=== PATIENT | female | born 1985 | race African-American/Black ===

== ENCOUNTER 2017-07-06 10:10 | Emergency (ER) | payer SELFPAY ==
[2017-07-06 10:15] VITALS: BP 101/63; BMI 19.1
--- NOTE | 2017-07-06 10:35 | DR.CP ---
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 Pain is not aggravated by motion. Chief Complaint:: PATIENT STATED THAT SHE IS HAVING CHEST PAIN ON THE LEFT SIDE. SHE STATED THAT SHE WOKE UP WITH THEM. SHE STATED THAT IT IS JUST THERE ONLY WHEN SHE TRIES TO GET UP. - Source History Provided: Patient - Mode of Arrival Mode of Arrival: Ambulatory - Timing Onset of Chief Complaint: 07/06/17 PMH - PMH Past Medical History: No Past Surgical History: Yes Surgical History: MOTOR DRIVER Surgery Past Surgical History Comment: HERNIA - Family History History of Family Medical Conditions: Yes Family Medical History: Diabetes Mellitus, Cancer, Hypertension - Social History Does patient currently use any type of tobacco product: Yes Have you used tobacco products in the last 12 months: Yes Type of Tobacco Use: Cigarettes Does any household member use tobacco: No Alcohol Use: None Do you use any recreational Drugs:: No Lives With: Family Lives Where: Home - infectious screening In the last 2 months have you had wt loss of >10#?: NO Have you had fever, night sweats or hemotysis?: No Have you traveled outside the country in the last 6 months?: No Isolation: Standard ROS - Review of Systems Eyes: No Symptoms Reported ENTM: No Symptoms Reported Respiratoy: No Symptoms Reported Cardiovascular: No Symptoms Reported Gastrointestinal/Abdominal: No Symptoms Reported Genitourinary: No Symptoms Reported Neurological: No Symptoms Reported Musculoskeletal: See HPI, Chest wall (pain) Integumentary: No Symptoms Reported Hematologic/Lymphatic: No Symptoms Reported Endocrine: No Symptoms Reported Psychiatric: No Symptoms Reported All Other Systems: Reviewed and Negative PE - Vitals Vitals: Temperature 97.9 F Pulse Rate 91 Respiratory Rate 20 Blood Pressure 101/63 O2 Sat by Pulse Oximetry 100 - General General Appearance: Alert - Head Head Exam: Normal Inspection, Atraumatic - Eyes Eye exam: Normal Appearance, PERRL, EOMI - ENT ENT Exam: Normal Exam - Chest Chest Inspection: Normal Inspection, Symmetric Chest Wall Rise - Respiratory Respiratory Exam: Normal Lung Sounds Bilat Respiratory Exam: Bilateral Clear to Auscultation - Cardiovascular Cardiovascular Exam: Regular Rate, Normal Rhythm Pulse: Normal, Radial Edema: negative: Normal, 1, 2, 3, 4, Plus, Right, Left, Bilateral, Upper, Lower , Extremity - Abdominal Exam Abdominal Exam: Normal Inspection Abdominal Tenderness: negative: RUQ, RLQ, LUQ, LLQ, Epigastrium, Suprapubic, Diffuse, Mild, Moderate, Severe, Other - Extremities Extremities Exam: Normal Inspection, Full ROM - Back Back Exam: Normal Inspection, Full ROM - Neurologic Neurological Exam: Alert, Oriented X3, CN II-XII Intact - Psychiatric Psychiatric Exam: Normal Affect, Normal Mood - Skin Skin Exam: Warm, Dry, Intact Course - Reevaluation 1st: Improved - Education/Counseling Educated On: Treatment, Diagnosis ROR - XRAY XRAY Interpreted by: Radiologist (Chest: no acute abnormality) - Diagnosis Discharge Problem: Anterior chest wall pain - Discharge Plan Condition: Stable - Follow ups/Referrals Follow ups/Referrals: NFD,None [Primary Care Provider] - 3 days - Instructions
[2017-07-06] MEDS ORDERED: TORADOL 30 MG VIAL IM ONE (10:37)
[2017-07-06] MEDS ORDERED: TORADOL 30 MG VIAL ONE (10:38)
--- NOTE | 2017-07-06 11:23 | RAD ---
HISTORY: Midsternal chest pain Study: Chest PA and lateral Comparison: None Findings: The heart is within normal limits in size. The siena are normal. The lungs are well inflated and free of acute alveolar infiltrates. No pleural effusions are identified. The bony thorax is unremarkable. IMPRESSION: No significant abnormality identified Reported By:
== END 2017-07-06 11:42 | disposition home or self-care (01) ==
LOC: ER 10:22
DX: R07.89 Other chest pain (principal)
CPT/HCPCS: 71046; 96372; 99282; 99283; J1885